=== PATIENT | female | born 1995 | race Caucasian/White ===

== ENCOUNTER 2020-06-08 16:12 | Inpatient (IN) | payer MEDICAID ==
[~2020-06-08] VITALS: Ht 165.1 cm; Wt 54.5 kg
[~2020-06-08 16:12] MED LIST: IBUP-1573 PO; NO HOME MEDS
[2020-06-08] MEDS ORDERED: naloxone 0.4 mg/ml inj IV ONE (16:25)
--- NOTE | 2020-06-08 16:30 | NUR ---
Pt too somnolent to provide med hx or engage with assessment.
[2020-06-08 16:53] LABS: EOSINOPHILS # (AUTO) 0.1 X10'3 (0-0.9); EOSINOPHILS % (AUTO) 1.4 % (0-6); MONOCYTES # (AUTO) 0.6 X10'3 (0-0.9); WHITE BLOOD COUNT 7.7 X10'3 (4.5-11.0)
[2020-06-08 16:55] LABS: BASOPHILS # (AUTO) 0.1 X10'3 (0-0.2); BASOPHILS % (AUTO) 0.7 % (0-1); HEMOGLOBIN 11.7 g/dl (12.0-16.0); LYMPHOCYTES # (AUTO) 2.7 X10'3 (1.1-4.8); LYMPHOCYTES % (AUTO) 35.4 % (21-51); MEAN CORPUSCULAR HEMOGLOBIN 28.9 PG (27.0-31.0); MEAN CORPUSCULAR HGB CONC 33.4 g/dL (33.0-36.5); MEAN CORPUSCULAR VOLUME 86.7 FL (78-98); MEAN PLATELET VOLUME 9.1 FL (7.4-10.4); MONOCYTES % (AUTO) 8.3 % (2-12); NEUTROPHILS # (AUTO) 4.2 X10'3 (1.8-7.7); NEUTROPHILS % (AUTO) 54.2 % (42-75); PLATELET COUNT 234 X10'3 (140-440); RED BLOOD COUNT 4.04 X10'6 (4.20-5.60); RED CELL DISTRIBUTION WIDTH 14.7 % (11.5-14.5)
[2020-06-08 17:10] LABS: ALANINE AMINOTRANSFERASE 21 U/L (12-78); ALBUMIN 3.5 G/DL (3.4-5.0); ALBUMIN/GLOBULIN RATIO 1.1 (1.1-1.5); ALKALINE PHOSPHATASE 67 IU/L (46-116); ANION GAP 9 (8-16); ASPARTATE AMINO TRANSFERASE 15 U/L (10-37); BILIRUBIN,TOTAL 0.2 MG/DL (0.1-1.0); BLOOD UREA NITROGEN 13 MG/DL (7-18); BUN/CREATININE RATIO 13.8 (6.6-38.0); CALCIUM 8.3 MG/DL (8.5-10.1); CHLORIDE 105 MMOL/L (99-107); CREATININE 0.94 MG/DL (0.40-0.90); ETHANOL < 0.010 GM/DL (0.0-0.010); GLUCOSE 94 MG/DL (70-104); POTASSIUM 3.7 MMOL/L (3.5-5.1); SODIUM 141 MMOL/L (135-145); TOTAL CARBON DIOXIDE 27.5 MMOL/L (24-32); TOTAL PROTEIN 6.7 G/DL (6.4-8.2); eGFR 72 ML/MIN
[2020-06-08 17:14] LABS: ACETAMINOPHEN < 2.0 UG/ML (10-30)
[2020-06-08 17:57] LABS: URINE HCG NEGATIVE (NEG)
[2020-06-08 18:10] LABS: URINE AMPHETAMINE SCREEN POSITIVE (Neg); URINE BARBITUATE SCREEN NEGATIVE (Neg); URINE BENZODIAZEPINES SCREEN POSITIVE (Neg); URINE CANNABINOID SCREEN NEGATIVE (Neg); URINE COCAINE SCREEN NEGATIVE (Neg); URINE METHADONE SCREEN NEGATIVE (Neg); URINE OPIATE SCREEN NEGATIVE (Neg); URINE PHENCYCLIDINE SCREEN NEGATIVE (Neg)
--- NOTE | 2020-06-08 18:35 | NUR ---
yfn Garcia reports pt currently dealing with oral herpes outbreak.
[2020-06-08] MEDS ORDERED: naloxone 2mg/2ml inj IV STA (19:38)
[2020-06-08] MEDS ORDERED: naloxone 2mg/2ml inj ONE (19:51)
--- NOTE | 2020-06-08 20:14 | NUR ---
BREAKING PRIMARY RN, WILL CONT TO MONITOR.
--- NOTE | 2020-06-08 20:55 | NUR ---
Pt somnolent, arousable to pain. Currently sleeping and resting comfortably.
[2020-06-08] MEDS ORDERED: naloxone 2mg/2ml inj 2 MG in normal saline 500ml IV soln 500 ML IV SCH (21:15)
[2020-06-08] MEDS ORDERED: normal saline 1000ML IV soln IVB ONE (22:10)
[2020-06-08 22:24] LABS: ABG HCO3 21.8 mmol/L (22.0-26.0); ABG OXYGEN SATURATION 93.5 % (94-97); ABG PCO2 (T) 47.2 mmHg (32.0-45.0); ABG PO2 (T) 71.9 mmHg (75.0-100.0); FCOHb 0.3 % (0.0-3.9); FMetHb 0.1 % (0.0-1.5); FO2Hb 93.1 % (94-97); PATIENT TEMPERATURE 36.3; TOTAL HEMOGLOBIN 9.8 G/dl (12.0-16.0)
[2020-06-08] MEDS ORDERED: acetaminophen 325mg tablet PO PRN (23:40)
[2020-06-08] MEDS ORDERED: magnesium hydroxide 30ml (MOM) UD suspension PO PRN (23:40)
[2020-06-09] VITALS (10 sets, daily range): BP systolic 92–117; BP diastolic 50–80
--- NOTE | 2020-06-09 02:27 | NUR ---
Contacted Dr. Earl regarding pt's BP 90/56 and low urine output 300cc. MD advised to put pt on bipap and repeat CBC and BMP.
[2020-06-09] MEDS ORDERED: normal saline 1000ml 1,000 ML IV ONE ×3 (02:50)
[2020-06-09 03:30] LABS: ALANINE AMINOTRANSFERASE 18 U/L (12-78); ALBUMIN 2.8 G/DL (3.4-5.0); ALKALINE PHOSPHATASE 59 IU/L (46-116); ANION GAP 7 (8-16); ASPARTATE AMINO TRANSFERASE 14 U/L (10-37); BILIRUBIN,TOTAL 0.4 MG/DL (0.1-1.0); BLOOD UREA NITROGEN 11 MG/DL (7-18); BUN/CREATININE RATIO 15.9 (6.6-38.0); CALCIUM 7.3 MG/DL (8.5-10.1); CHLORIDE 111 MMOL/L (99-107); CREATININE 0.69 MG/DL (0.40-0.90); GLUCOSE 111 MG/DL (70-104); POTASSIUM 4.2 MMOL/L (3.5-5.1); SODIUM 142 MMOL/L (135-145); TOTAL CARBON DIOXIDE 24.2 MMOL/L (24-32); TOTAL PROTEIN 5.6 G/DL (6.4-8.2); eGFR > 90 ML/MIN
[2020-06-09 04:35] LABS: ABG BASE EXCESS -3.3 mmol/L (-2.0-2.0); ABG HCO3 23.4 mmol/L (22.0-26.0); ABG OXYGEN SATURATION 98.5 % (94-97); ABG PCO2 (T) 49.4 mmHg (32.0-45.0); ABG PO2 (T) 145.7 mmHg (75.0-100.0); FCOHb 0.4 % (0.0-3.9); FMetHb 0.1 % (0.0-1.5); RESPIRATORY RATE 16 b/min; TOTAL HEMOGLOBIN 11.2 G/dl (12.0-16.0)
--- NOTE | 2020-06-09 05:01 | NUR ---
Patient in room ED 7. I have received report from Ulysses ED RN and had the opportunity to ask questions and assume patient care.
--- NOTE | 2020-06-09 05:40 | NUR ---
Pt arrived fr/ED via gurney in no acute distress. Somnolent on arrival, awakened during transfer to bed, irritated w/movement, opening eyes unfocused, asking about mother and SO. Placed on monitor, NSR. SBP: 93. Bipap placed per mask, FiO2 25%, lungs clear, O2 sat 100%. MRSA swab taken, 2 RN skin check completed. Narcan inf as ord.
--- NOTE | 2020-06-09 06:26 | NUR ---
Problems reprioritized. Patient report given, questions answered & plan of care reviewed with Karol BAUTISTA.
[2020-06-09 07:31] LABS: BASOPHILS % (AUTO) 0.4 % (0-1); EOSINOPHILS % (AUTO) 0.1 % (0-6); HEMATOCRIT 30.7 % (35.0-45.0); LYMPHOCYTES # (AUTO) 1.4 X10'3 (1.1-4.8); LYMPHOCYTES % (AUTO) 11.5 % (21-51); MEAN CORPUSCULAR HEMOGLOBIN 28.5 PG (27.0-31.0); MEAN CORPUSCULAR HGB CONC 32.6 g/dL (33.0-36.5); MEAN CORPUSCULAR VOLUME 87.4 FL (78-98); MEAN PLATELET VOLUME 9.5 FL (7.4-10.4); MONOCYTES # (AUTO) 0.6 X10'3 (0-0.9); MONOCYTES % (AUTO) 4.8 % (2-12); NEUTROPHILS # (AUTO) 10.4 X10'3 (1.8-7.7); NEUTROPHILS % (AUTO) 83.2 % (42-75); PLATELET COUNT 202 X10'3 (140-440); RED BLOOD COUNT 3.51 X10'6 (4.20-5.60); RED CELL DISTRIBUTION WIDTH 15.1 % (11.5-14.5); WHITE BLOOD COUNT 12.5 X10'3 (4.5-11.0)
--- NOTE | 2020-06-09 07:57 | NUR ---
notified patient is somnolent, on BiPap and narcan drip. Orders to stop Narcan drip. Addendum: 06/09/20 at 0839 by Priyanka Hinkle RN NOTIFIED DECREASED URINE OUTPUT; NEW ORDERS RECEIVED
[2020-06-09] MEDS ORDERED: albumin (Human) 5% 250ml 250 ML IV ONE ×2 (08:05)
[2020-06-09] MEDS ORDERED: glucagon, human recombinant 1mg kit SUBCUT PRN (08:25)
[2020-06-09] MEDS ORDERED: insulin Lispro (HumaLOG) vial - multi-dose SQ SCH (08:25)
[2020-06-09] MEDS ORDERED: dextrose ORAL solution 15 GM/59 ML bottle PO PRN ×2 (08:25)
[2020-06-09] MEDS ORDERED: dextrose 50%-water 50ml dispensing syringe IV PRN ×2 (08:25)
[2020-06-09] MEDS ORDERED: dextrose 50%-water 50ml dispensing syringe IV ONE (08:27)
--- NOTE | 2020-06-09 08:39 | NUR ---
patient's blood glucose 64; 1/2 amp 50% dextrose given.
[2020-06-09 08:47] LABS: HEMOGLOBIN A1C 5.8 % (4.5-6.2)
--- NOTE | 2020-06-09 08:51 | NUR ---
recheck glucose 115
[2020-06-09] MEDS ORDERED: NORepinephrine inj. 8 MG in dextrose 5%-water 242 ML IV SCH (10:10)
--- NOTE | 2020-06-09 11:16 | NUR ---
patient's father at bedside. patient demanding food and threatening to leave in order to eat. sole stapler welt and MD aware.
--- NOTE | 2020-06-09 12:45 | NUR ---
patient's food came. patient stated she felt dizzy and weak. Retook patient's blood glucose. Blood glucose was 68. patient ate clear liquid diet and then began to request leaving the facility against medical advice and did not want blood sugar taken again. MD had spoken to the patient and father at bedside about leaving against medical advice. MD aware that patient is adamant about leaving. went back to patient's room with AMA form and patient is sleeping. will continue to monitor.
--- NOTE | 2020-06-09 13:23 | NUR ---
patient's grandmother, Jennifer called for information on patient. Patient gave verbal consent to give her grandmother information about her health.
--- NOTE | 2020-06-09 14:58 | NUR ---
Patient wanting to leave against medical advice. Patient's mother at bedside along with MD who again explained to patient and mother the risks of leaving against medical advice. Patient began removing electrodes, and blood pressure cuff. RN removed vance and two peripheral IVs cannulas intact. Patient dressed self and mother escorted her downstairs.
--- NOTE | 2020-06-09 15:14 | NUR ---
Spoke with Nurse in ICU who reported that the patient went AMA. Notified charge nurse
[2020-06-09] MEDS ORDERED: insulin glargine (Lantus) pen - multi-dose SQ SCH (21:00)
== END 2020-06-09 14:58 | disposition left against medical advice (07) | DRG 812 ==
LOC: ER 16:13 → ED HOLD 23:38 → ICU 2S 06-09 05:14
PROVIDERS: ADMIT Internal Medicine Pulmonary Disease; ATTEND Internal Medicine Pulmonary Disease
DX: T40.2X1A Poisoning by other opioids, accidental (unintentional), initial encounter (principal); I95.9 Hypotension, unspecified; T43.621A Poisoning by amphetamines, accidental (unintentional), initial encounter; F19.10 Other psychoactive substance abuse, uncomplicated; Y92.89 Other specified places as the place of occurrence of the external cause; F32.9 Major depressive disorder, single episode, unspecified; F15.90 Other stimulant use, unspecified, uncomplicated
CPT/HCPCS: 36415; 36600; 71045; 80053; 80305; 80320; 80329; 81025; 82803; 82948; 83036; 83605; 85018; 85025; 87081; 93005; 94660; 94760; 96374; 96375; 99291; 99292; G0378; J1815; J2310; J7030; J7040; P9045